=== PATIENT | female | born 1960 | race Caucasian/White ===

== ENCOUNTER 2017-03-06 09:01 | Emergency (ER) | payer OTHER, SELFPAY ==
--- NOTE | 2017-03-06 15:35 | RAD ---
CHEST TWO VIEWS: HISTORY: Cough. FINDINGS: Heart size and mediastinum are within normal limits. There is a right middle lobe infiltrate present . There is some linear atelectasis or scar in the left base. IMPRESSION: Right middle lobe infiltrate. POS: [facility]
== END 2017-03-06 10:35 | disposition home or self-care (01) ==
LOC: ERS 09:01
DX: J18.9 Pneumonia, unspecified organism (principal); F17.210 Nicotine dependence, cigarettes, uncomplicated; F32.9 Major depressive disorder, single episode, unspecified
CPT/HCPCS: 71020; 99406; J7620

== ENCOUNTER 2017-03-06 16:03 | Emergency (ER) | payer SELFPAY ==
[2017-03-06] MEDS ORDERED: Ondansetron ODT 4 MG TAB ONE (16:26)
[2017-03-06 16:49] LABS: Bacteria/HPF None Seen HPF (None Seen); Hyaline Casts/LPF 0-3 HYALINE CAST LPF (0-3 Hyaline); Squamous Epithelial 0-3 HPF (0-3); WBC/HPF 0-3 HPF (0-3)
[2017-03-06 16:50] LABS: Bilirubin Negative (Negative); Blood, Urine Large (Negative); Glucose, Urine (Dipstick) Negative (Negative); Ketone, Urine Negative (Negative); Nitrite Negative (Negative); Protein, Urine (Dipstick) Trace mg/dL (Neg-Trace); Urobilinogen 0.2 mg/dL (0.2-1.0)
[2017-03-06] MEDS ORDERED: ALPRAZolam 0.25 MG TAB ONE (17:05)
[2017-03-06] MEDS ORDERED: Azithromycin 250 MG TAB ONE (17:07)
[2017-03-06] MEDS ORDERED: Ibuprofen 200 MG TAB ONE (17:20)
== END 2017-03-06 17:08 | disposition home or self-care (01) ==
LOC: ERS 16:03
DX: J18.9 Pneumonia, unspecified organism (principal); F17.210 Nicotine dependence, cigarettes, uncomplicated; F32.9 Major depressive disorder, single episode, unspecified
CPT/HCPCS: 81003; 81015; 99284; Q0162

== ENCOUNTER 2018-01-03 10:18 | Emergency (ER) | payer SELFPAY ==
[2018-01-03] MEDS ORDERED: Ketorolac Tromethamine 60 MG/2 ML VIAL ONE (11:34)
[2018-01-03] MEDS ORDERED: Dexamethasone 10 MG/ML VIAL ONE (11:34)
[2018-01-03] MEDS ORDERED: Diazepam 5 MG TAB ONE (11:34)
[2018-01-03] MEDS ORDERED: HYDROcodone/Acetaminophen 5/325 mg Tablet ONE (11:58)
== END 2018-01-03 12:17 | disposition home or self-care (01) ==
LOC: ERS 10:18
DX: G89.29 Other chronic pain (principal); M54.5 Low back pain; F32.9 Major depressive disorder, single episode, unspecified; Z79.899 Other long term (current) drug therapy
CPT/HCPCS: 96372; J1100; J1885

== ENCOUNTER 2018-02-03 13:46 | Emergency (ER) | payer SELFPAY ==
[2018-02-03] MEDS ORDERED: HYDROcodone/Acetaminophen 5/325 mg Tablet ONE (15:01)
[2018-02-03] MEDS ORDERED: Ketorolac Tromethamine 60 MG/2 ML VIAL ONE (15:01)
[2018-02-03 15:14] LABS: Bilirubin Negative (Negative); Blood, Urine Trace (Negative); Clarity Clear (Clear); Glucose, Urine (Dipstick) Negative (Negative); Leukocyte Negative (Negative); Nitrite Negative (Negative); Protein, Urine (Dipstick) Negative (Neg-Trace); Urobilinogen 0.2 mg/dL (0.2-1.0)
[2018-02-03 15:17] LABS: Squamous Epithelial 0-3 HPF (0-3); WBC/HPF 0-3 HPF (0-3)
[2018-02-03 15:18] LABS: Bacteria/HPF Rare-Few HPF (None Seen)
== END 2018-02-03 16:03 | disposition home or self-care (01) ==
LOC: SCSER 13:46
DX: M54.5 Low back pain (principal); R31.29 Other microscopic hematuria; F32.9 Major depressive disorder, single episode, unspecified; F41.9 Anxiety disorder, unspecified; F17.200 Nicotine dependence, unspecified, uncomplicated
CPT/HCPCS: 81003; 81015; 96372; J1885

== ENCOUNTER 2018-02-17 14:58 | Emergency (ER) | payer SELFPAY ==
[2018-02-17] MEDS ORDERED: Ketorolac Tromethamine 60 MG/2 ML VIAL ONE (16:05)
== END 2018-02-17 16:18 | disposition home or self-care (01) ==
LOC: ERS 14:58
DX: G89.29 Other chronic pain (principal); M54.5 Low back pain; F41.9 Anxiety disorder, unspecified; F32.9 Major depressive disorder, single episode, unspecified; F17.200 Nicotine dependence, unspecified, uncomplicated; Z79.899 Other long term (current) drug therapy
CPT/HCPCS: 96372; J1885

== ENCOUNTER 2018-04-17 14:22 | Emergency (ER) | payer SELFPAY ==
[2018-04-17] MEDS ORDERED: Ketorolac Tromethamine 30 MG/ML VIAL ONE (14:38)
[2018-04-17] MEDS ORDERED: Ketorolac Tromethamine 60 MG/2 ML VIAL ONE (14:39)
[2018-04-17] MEDS ORDERED: Acetaminophen 500 MG TAB ONE ×2 (14:44)
== END 2018-04-17 15:24 | disposition home or self-care (01) ==
LOC: ERS 14:22
DX: M54.42 Lumbago with sciatica, left side (principal); F41.9 Anxiety disorder, unspecified; F32.9 Major depressive disorder, single episode, unspecified; F17.210 Nicotine dependence, cigarettes, uncomplicated
CPT/HCPCS: 96372; J1885

== ENCOUNTER 2019-01-17 18:51 | Emergency (ER) | payer SELFPAY ==
[2019-01-17] MEDS ORDERED: Ketorolac Tromethamine 30 MG/ML VIAL ONE (19:15)
[2019-01-17] MEDS ORDERED: Acetaminophen/Codeine 30-300mg Tablet ONE (19:53)
== END 2019-01-17 20:20 | disposition home or self-care (01) ==
LOC: ERS 18:51
DX: M54.5 Low back pain (principal); F17.210 Nicotine dependence, cigarettes, uncomplicated; F41.9 Anxiety disorder, unspecified; F32.9 Major depressive disorder, single episode, unspecified; Z71.6 Tobacco abuse counseling
CPT/HCPCS: 96372; 99406; J1885

== ENCOUNTER 2019-02-06 19:17 | Emergency (ER) | payer SELFPAY ==
[2019-02-06] MEDS ORDERED: Dexamethasone 10 MG/ML VIAL ONE (19:55)
[2019-02-06] MEDS ORDERED: Ketorolac Tromethamine 60 MG/2 ML VIAL ONE (19:55)
== END 2019-02-06 21:11 | disposition home or self-care (01) ==
LOC: ERS 19:17
DX: M54.42 Lumbago with sciatica, left side (principal); G89.29 Other chronic pain; F41.9 Anxiety disorder, unspecified; F32.9 Major depressive disorder, single episode, unspecified; F17.210 Nicotine dependence, cigarettes, uncomplicated
CPT/HCPCS: 96372; 99283; J1100; J1885

== ENCOUNTER 2019-03-03 13:03 | Emergency (ER) | payer OTHER, SELFPAY ==
[2019-03-03] MEDS ORDERED: Ketorolac Tromethamine 30 MG/ML VIAL ONE (14:37)
[2019-03-03] MEDS ORDERED: Acetaminophen/Codeine 30-300mg Tablet ONE (14:39)
== END 2019-03-03 15:15 | disposition home or self-care (01) ==
LOC: ERS 13:03
DX: M54.42 Lumbago with sciatica, left side (principal); F41.9 Anxiety disorder, unspecified; F32.9 Major depressive disorder, single episode, unspecified; F17.210 Nicotine dependence, cigarettes, uncomplicated
CPT/HCPCS: J1885

== ENCOUNTER 2019-05-10 19:49 | Emergency (ER) | payer SELFPAY ==
[2019-05-10] MEDS ORDERED: Ketorolac Tromethamine 60 MG/2 ML VIAL ONE (20:21)
[2019-05-10] MEDS ORDERED: Acetaminophen/Codeine 30-300mg Tablet ONE (20:46)
== END 2019-05-10 20:49 | disposition home or self-care (01) ==
LOC: ERS 19:49
DX: M54.42 Lumbago with sciatica, left side (principal); G89.29 Other chronic pain; F41.9 Anxiety disorder, unspecified; F32.9 Major depressive disorder, single episode, unspecified; F17.210 Nicotine dependence, cigarettes, uncomplicated
CPT/HCPCS: 96372; 99283; J1885